=== PATIENT | male | born 1970 ===

== ENCOUNTER 2021-04-22 16:41 | Emergency (ER) | payer SELFPAY ==
[~2021-04-22] VITALS: Ht 182.9 cm; Wt 68.0 kg
[2021-04-22] MEDS ORDERED: IBUPROFEN 800 MG TAB PO ONE (17:15)
[2021-04-22 19:53] VITALS: BP 115/76
== END 2021-04-22 19:54 | disposition home or self-care (01) ==
LOC: ER 16:41
DX: S46.911A Strain of unspecified muscle, fascia and tendon at shoulder and upper arm level, right arm, initial encounter (principal); M79.10 Myalgia, unspecified site; X58.XXXA Exposure to other specified factors, initial encounter; Y93.89 Activity, other specified; Y92.89 Other specified places as the place of occurrence of the external cause; Y99.8 Other external cause status
CPT/HCPCS: 73030